=== PATIENT | female | born 2000 | race Caucasian/White ===

== ENCOUNTER 2023-11-23 15:37 | Emergency (ER) | payer OTHER, SELFPAY ==
[2023-11-23 15:41] VITALS: BP 131/90; PULSE 95; TEMP 36.6; O2SAT 99; BMI 33.7
--- NOTE | 2023-11-23 15:48 | PC.NURSE ---
light red raised rash to various areas, bilat legs, a spot to upper abd, back, neck and face clear. pt reports itching and no changes in soaps, lotions or hair products.
--- NOTE | 2023-11-23 15:51 | ED_ITS ---
HPI HPI - General Adult General Chief complaint: Allergic Reaction Stated complaint: rash Time Seen by Provider: 11/23/23 15:43 Source: patient Mode of arrival: walk-in Limitations: no limitations History of Present Illness HPI narrative: 23-year-old female presents here with a chief complaint of diffuse rash. She was seen at another facility 2 days ago and diagnosed with a fungal rash. I do not appreciate fungal rash at this time. Patient has red pruritic rash to lower extremities and back. She was placed on antifungal medication and cream. She states she has been using it. She states the rash she is getting is more hive- like and coming and going. She denies any known irritants. She does work in cleaning. Patient vital signs are stable she is not hypoxic. She shows no s igns of distress. Related Data Home Medications ?Medication ?Instructions ?Recorded ?Confirmed griseofulvin ultramicrosize 250 mg 250 mg PO BID 11/23/23 11/23/23 tablet ketoconazole 2 % topical cream applic topical DAILY 11/23/23 Allergies Allergy/AdvReac Type Severity Reaction Status Date / Time No Known Drug Allergies Allergy Verified 11/23/23 15:40 Opioid HPI Opioid Management Most Recent Opioid Data: No Data to Display Review of Systems ROS Narrative All Systems are negative except as noted/marked.All systems reviewed and otherwise negative Exam Narrative Exam Narrative: All Systems are negative except as noted/marked.All systems reviewed and otherwise negative Nurses note and vital signs reviewed and patient is not hypoxic. General: The patient appears well and in no apparent distress. Patient is resting comfortably on cart. Skin: Warm, dry, no pallor noted. Rash lower extremity forehead and back. Dry, pruritic papular Head: Normocephalic, atraumatic Eye: Normal conjunctiva, no drainage, EOMI. PERRL Ears, Nose, Mouth, and Throat: oral mucosa is moist. Nares patent. Mouth without vesicles. Ear canals patent. Tm's without Erythema Cardiovascular: Regular Rate and Rhythm Respiratory: Patient is in no distress, no accessory muscle use, lungs are clear to auscultation, no wheezing, rales or rhonchi Musculoskeletal: The patient has no evidence of calf tenderness, no pitting edema, symmetrical pulses noted bilaterally Neurological: A&O x4, normal speech Psychiatric: Cooperative Constitutional Vital Signs, click to edit/add: Last Vital Signs Temp 97.8 F 11/23/23 15:41 Pulse 89 11/23/23 16:03 Resp 18 11/23/23 16:03 BP 98/73 11/23/23 16:03 Pulse Ox 99 11/23/23 16:03 Course Vital Signs Vital signs: Vital Signs Temperature 97.8 F 11/23/23 15:41 Pulse Rate 95 H 11/23/23 15:41 Respiratory Rate 16 11/23/23 15:41 Blood Pressure 131/90 11/23/23 15:41 Pulse Oximetry 99 11/23/23 15:41 Temperature 97.8 F 11/23/23 15:41 Pulse Rate 89 11/23/23 16:03 Respiratory Rate 18 11/23/23 16:03 Blood Pressure 98/73 11/23/23 16:03 Pulse Oximetry 99 11/23/23 16:03 Medical Decision Making MDM Narrative Medical decision making narrative: 23-year-old female presents here with a chief complaint of diffuse rash. She was seen at another facility 2 days ago and diagnosed with a fungal rash. I do not appreciate fungal rash at this time. Patient has red pruritic rash to lower extremities and back. She was placed on antifungal medication and cream. She states she has been using it. She states the rash she is getting is more hive- like and coming and going. She denies any known irritants. She does work in cleaning. Patient vital signs are stable she is not hypoxic. She shows no signs of distress. I diffuse rash has been placed on antifungal. I will give her a shot of Kenalog here today to help with itching and hive-like rash. She was told to use [id number] Zyrtec and Pepcid as well. She will be referred to de rmatology. Patient verbalized understanding agrees with plan of care. Medical Records Medical records reviewed: Yes I reviewed the patient's medical records Discharge Plan Discharge Stand Alone Forms: Portal Instructions Chief Complaint: Allergic Reaction Clinical Impression: Urticaria Patient Disposition: Home, Self-Care Time of Disposition Decision: 15:56 Condition: Good Prescriptions / Home Meds: No Action griseofulvin ultramicrosize 250 mg tablet 250 mg PO BID ketoconazole 2 % cream TOPICAL DAILY Print Language: Kiswahili Instructions: Urticaria (ED) Additional Instructions: you may use over the counter zyrtec and pepcid to help with hives. you have been medicated with a steroid injection today Referrals: KIAH MCKINNON [Physician] - 1-2 weeks ([facility] [place]) Physician,Non-Staff, [Primary Care Provider] - 1 week Discharge Date/Time: 11/23/23 16:06
[2023-11-23] MEDS: TRIAMCINOLONE ACETONIDE 40 MG/ML VIAL IM (15:56)
[2023-11-23 16:03] VITALS: BP 98/73; PULSE 89; O2SAT 99
== END 2023-11-23 16:06 | disposition home or self-care (01) ==
PROVIDERS: Emergency Provider Emergency Medicine
DX: L50.9 Urticaria, unspecified (principal)
CPT/HCPCS: 96372; 99284; J3301